=== PATIENT | female | born 1955 | race Caucasian/White ===

== ENCOUNTER → 2025-01-06 | Day surgery (SDC) | payer MEDICARE, BC ==
[2024-12-30 09:43] VITALS: BMI 39.6
[~2025-01-06] MED LIST: Acetaminophen 500 MG TAB ONE; Bupivacaine/Epinephrine 0.25% 30 ML VIAL ONE; CEFAZOLIN 2 GM VIAL ONE; Ketorolac Tromethamine 30 MG (1 mL) VIAL ONE; Ondansetron PF 4 MG/2 ML Vial ONE; PROPOFOL 20 ML ONE; Rocuronium Bromide 10 MG/ML (10ML VIAL) ONE; SUGAMMADEX SODIUM 200 MG/2 ML VIAL ONE
== END ==
LOC: CSHSDC 09:07
PROVIDERS: ATTEND Specialist
PROC: 0FT44ZZ Resection of Gallbladder, Percutaneous Endoscopic Approach (ICD-10-PCS; principal; 2025-01-06)
DX: K80.10 Calculus of gallbladder with chronic cholecystitis without obstruction (principal); Z87.891 Personal history of nicotine dependence; Z88.0 Allergy status to penicillin
CPT/HCPCS: 47562; C1889; J1100; J1885; J2405; J2704; J3010; S2900; 88304